=== PATIENT | female | born 2000 | race Caucasian/White ===

== ENCOUNTER 2025-01-22 16:21 | Emergency (ER) | payer OTHER, SELFPAY ==
[2025-01-22 16:23] VITALS: BP 164/119
[2025-01-22 16:46] VITALS: BMI 33.2
--- NOTE | 2025-01-22 17:23 | ED.GENMED ---
History of Present Illness
General
Chief Complaint: Crisis Evaluation
Time Seen by Provider: 01/22/25 17:05
History of Present Illness
History of Present Illness:
Patient is a 24-year-old woman with history of anxiety presenting to the emergency department for crisis evaluation. Patient states that since July she stopped taking her Lexapro as she ran out of refills. She has not seen therapy psychiatry
or psychology since then. She states that since then her anxiety has been worsening. She did have a obsessive thoughts over her relationship. She states that she has a lot of guilt and anxiety. She does not have any thoughts of killing herself
or any attempts. She does have thoughts of hurting herself. She did scratch her wrist to hurt herself as a coping mechanism because she needed something else to focus on. She denies any hallucinations or delusions. No alcohol or drug use. She
has never attempted to kill herself and does not have a plan. She does not have any medical complaints.
Past History
Past History
ED Past Medical History: Psychiatric (Anxiety)
ED Past Surgical History: Other ([place] teeth)
Phy Exam
Physical Exam
Physical Exam:
GENERAL: in no acute distress
HEENT: normocephalic, extraocular movements intact, moist oral mucosa
NECK: normal inspection
RESPIRATORY: no respiratory distress, clear to auscultation bilaterally
CARDIOVASCULAR: regular rate and rhythm
ABDOMEN/: soft, non-distended, non-tender to palpation, no rebound or guarding
EXTREMITIES: non-tender, no edema/swelling
NEUROLOGIC: awake and alert, moves all extremities
Psych: Alert and oriented x 3, normal mood and affect, speech normal not pressured, coherent thought process, not tangential, not currently suicidal or homicidal, cooperative and communicating, no active auditory or visual hallucinations, good
insight and judgement
SKIN: warm
Course
Orders/Labs/Results
Orders:
Orders
01/22/25 16:22
Crisis Consult Urgent
Reason for Consult: SI
Vital Signs
Initial and Last Documented VS:
Initial Vital Signs
Temp Pulse Resp BP Pulse Ox
98.3 F 114 18 164/119 98
01/22/25 16:23 01/22/25 16:23 01/22/25 16:23 01/22/25 16:23 01/22/25 16:23
Last Documented Vital Signs
Temp Pulse Resp BP Pulse Ox
98.3 F 114 18 164/119 98
01/22/25 16:23 01/22/25 16:23 01/22/25 16:23 01/22/25 16:23 01/22/25 16:23
MDM/Problems Addressed
Differential Diagnosis Includes:
Patient is a 24-year-old woman presenting to the emergency department for crisis evaluation for anxiety. Vitals unremarkable and exam is reassuring. Patient with no medical complaints at this time. She is medically clear for crisis evaluation.
She does not meet any criteria for involuntary committal as there is no harm to herself or others at this time.
*Critical Care Note
Total Time (30-74mins, 75-104mins- exclusive of procedures): Not Applicable
Update Note
Update Note:
Crisis evaluated patient and gave outpatietn resources. in agreement she does not meet any criteria for placement. patient in agreement with this plan
ED Attending Note
-
Portions of this chart may have been created with voice recognition software.� Occasional wrong word or��sound alike� substitutions may have occurred due to the inherent limitations of voice recognition software.
Discharge Plan
Departure
Patient Disposition: Home (Routine Discharge)
Date of Disposition: 01/22/25
Time of Disposition: 20:39
Patient with high blood pressure during this ER visit?: Yes
Discharge Problem:
Anxiety
Instructions: Anxiety, Adult (DC)
Referrals:
[facility] [place], [Other]
Lisa Reid MD [Family Provider]
Interventions
Interventions:
*Risk Screen - Suicide Last Done: 01/22/25 16:23
*General Assessment Last Done: 01/22/25 16:23
*Neglect/Abuse Screening Last Done: 01/22/25 16:23
*ED- Fall Risk Assessment Last Done: 01/22/25 16:46
*ED COVID-19 Vaccine History Last Done: 01/22/25 16:46
ED-Psychological Assessment Last Done: 01/22/25 16:46
Discharge Date and Time
Print Language: [place]
[2025-01-22 21:20] VITALS: BP 130/92
== END 2025-01-22 21:31 | disposition home or self-care (01) ==
LOC: EMR 16:21
PROVIDERS: EMERGENCY PHYSICIAN Student in an Organized Health Care Education/Training Program; FAMILY PHYSICIAN Family Medicine
DX: F41.9 Anxiety disorder, unspecified (principal)
CPT/HCPCS: 99283